=== PATIENT | female | born 1960 ===

== ENCOUNTER 2024-04-27 11:56 | Day surgery (SDC) | payer OTHER ==
[2024-04-11 07:31] LABS: HEMATOCRIT 34.7 % (36.0-45.00); HEMOGLOBIN 11.8 g/dL (12.0-15.00); MEAN CORPUSCULAR HEMOGLOBIN 28.6 pg (27.00-32.0); MEAN CORPUSCULAR HGB CONC 34.1 g/dl (32.0-36.0); PLATELET COUNT 284 K/uL (150-450); RED BLOOD COUNT 4.12 M/uL (4.00-6.00)
[2024-04-11 07:34] LABS: URINE APPEARANCE Cloudy; URINE BILIRRUBIN Negative (NEGATIVE); URINE BLOOD Negative; URINE COLOR Yellow; URINE KETONE Negative (NEGATIVE); URINE LEUKOCYTE Moderate; URINE NITRATE Negative; URINE PROTEIN Negative (NEGATIVE); URINE UROBILINOGEN 0.2 E.U./dl
[2024-04-11 07:38] LABS: URINE BACTERIA 1852.9 uL (0.0-1933); URINE EPITHELIAL CELLS 15.6 uL (0.0-38.8); URINE RBC 2.3 uL (0.0-20.8); URINE WBC 272.7 uL (0.0-23.2)
[2024-04-11 07:41] LABS: URINE CAST 0.58 uL (0.0-1.40); URINE GLUCOSE 500 MG/DL (NEGATIVE)
[2024-04-11 07:43] VITALS: BP 123/77
[2024-04-11 07:56] LABS: INR 0.94; PARTIAL THROMBOPLASTIN TIME 23.3 SECONDS (22.0-34.0); PROTHROMBIN TIME 10.3 SECONDS (9.0-11.5)
[2024-04-11 08:35] LABS: ALBUMIN 3.6 gm/dL (3.4-5.0); BILIRUBIN TOTAL 0.44 mg/dL (0.3-1.2); CALCIUM 9.5 mg/dL (8.5-10.1); CREATININE SERUM 1.35 mg/dL (0.55-1.02); GFR 39.23; GLOBULINA 3.7 G/DL (2.4-3.5); POTASSIUM 3.83 mEq/L (3.5-5.1); TOTAL PROTEIN 7.3 gm/dL (6.4-8.2)
[2024-04-11 08:54] LABS: RH POSITIVE
[~2024-04-27] VITALS: Ht 154.9 cm; Wt 57.6 kg
[~2024-04-27 11:56] MED LIST: AVAPRO150 MG PO; FARXIGA10 MG PO; LIPITOR20 MG PO; METFORMIN HCL500 M3 PO
[2024-04-27] MEDS ORDERED: POVIDONE-IODINE 118 ML BOTT TOP ONE (16:33)
[2024-04-27] MEDS ORDERED: RINGERS SOLUTION,LACTATED 1,000 ML IV SCH (18:45)
== END 2024-04-27 23:45 | disposition home or self-care (01) ==
LOC: CIR.AMB 11:56
PROVIDERS: ATTEND Obstetrics & Gynecology
DX: N84.0 Polyp of corpus uteri (principal); I10 Essential (primary) hypertension; E11.9 Type 2 diabetes mellitus without complications; E78.00 Pure hypercholesterolemia, unspecified